=== PATIENT | female | born 1950 | race Caucasian/White ===

== ENCOUNTER 2019-02-21 21:13 | Inpatient (IN) | payer MEDICARE, OTHER ==
[2019-02-21] MEDS: IBUPROFEN 600 MG TAB PO (21:54)
[2019-02-21] MEDS: LIDOCAINE 2%/EPI (MDV) 20ML INJ INJ (22:01)
[2019-02-22 00:01] LABS: ADD MAN DIFF? NO
[2019-02-22 00:02] LABS: BASOPHILS % 0.3 % (0.0-2.0); EOSINOPHILS # 0.1 10^3/ul (0.0-0.5); EOSINOPHILS % 0.8 % (0.0-7.0); HEMOGLOBIN 12.9 g/dl (12.0-16.0); LYMPHOCYTES % 32.4 % (15.0-51.0); MEAN CORPUSCULAR HEMOGLOBIN 28.5 pg (29.0-33.0); MEAN CORPUSCULAR HGB CONC 32.3 g/dl (32.0-37.0); MEAN CORPUSCULAR VOLUME 88.5 fl (82.0-101.0); MEAN PLATELET VOLUME 9.6 fl (7.4-10.4); MONOCYTE # 0.9 10^3/ul (0.3-0.9); MONOCYTES % 7.5 % (0.0-11.0); NEUTROPHIL # 7.1 10^3/ul (1.6-7.5); NEUTROPHILS % 58.6 % (39.0-77.0); PLATELET COUNT 244 10^3/UL (140-415); RED BLOOD COUNT 4.52 10^6/ul (4.20-5.40); RED CELL DISTRIBUTION WIDTH 12.4 % (11.5-14.5)
[2019-02-22 00:02] LABS: WHITE BLOOD COUNT 12.2 10^3/ul (4.8-10.8)
[2019-02-22 00:22] LABS: ANION GAP 11 (5-13); BLOOD UREA NITROGEN 24 mg/dl (7-20); CALCIUM 9.5 mg/dl (8.4-10.2); CARBON DIOXIDE 27 mmol/L (21-31); CHLORIDE 106 mmol/L (97-110); CREATININE 0.64 mg/dl (0.44-1.00); Estimated GFR > 60 mL/min (>60); GLUCOSE 148 mg/dl (70-220); SODIUM 144 mmol/L (135-144)
[2019-02-22 00:23] LABS: PARTIAL THROMBOPLASTIN TIME 28.5 Sec (23.0-35.0); PROTIME 12.3 Sec (11.9-14.9)
[2019-02-22] MEDS ORDERED: HYDROCODONE/APAP (5/325) TAB PO (01:00)
[2019-02-22] MEDS: LISINOPRIL 5 MG TAB PO (01:00)
[2019-02-22] MEDS ORDERED: ONDANSETRON 4 MG INJ IV (01:00)
[2019-02-22] MEDS ORDERED: ALBUTEROL/IPRATROPIUM (NEB) 3 ML AMP NEB (01:00)
[2019-02-22] MEDS ORDERED: ACETAMINOPHEN 325 MG TAB PO (01:00)
[2019-02-22] MEDS ORDERED: LABETALOL HCL 20MG INJ IV (01:00)
[2019-02-22] MEDS: DIPHTH/TET/ACEL PERTUSS (ADULT) 0.5 ML VIAL IM* (02:00)
[2019-02-22] MEDS: PANTOPRAZOLE 40 MG INJ IV (06:52)
[2019-02-22] MEDS: SOD CHLORIDE 0.9% 1,000 ML IV (13:34)
== END 2019-02-22 17:05 | disposition home health service (06) | DRG 87 ==
LOC: FTE 21:13 → ICU 02-22 00:16
PROC: 08QPXZZ Repair Left Upper Eyelid, External Approach (ICD-10-PCS; principal; 2019-02-21)
DX: S06.5X0A Traumatic subdural hemorrhage without loss of consciousness, initial encounter (principal); E78.5 Hyperlipidemia, unspecified; I10 Essential (primary) hypertension; J45.909 Unspecified asthma, uncomplicated; S01.112A Laceration without foreign body of left eyelid and periocular area, initial encounter; W01.198A Fall on same level from slipping, tripping and stumbling with subsequent striking against other object, initial encounter; Y93.89 Activity, other specified; Y92.014 Private driveway to single-family (private) house as the place of occurrence of the external cause; Y99.8 Other external cause status
CPT/HCPCS: 36415; 70450; 70480; 80048; 85025; 85610; 85730; 90715; 92610; 97161; 97167; 99285-25

== ENCOUNTER 2019-03-08 09:46 | Emergency (ER) | payer MEDICARE, OTHER | END 2019-03-08 10:30 | disposition home or self-care (01) | LOC: FTE 10:30 | DX: Z48.02 Encounter for removal of sutures (principal); J45.909 Unspecified asthma, uncomplicated | CPT/HCPCS: 99281 ==